=== PATIENT | male | born 1980 | race Caucasian/White ===

== ENCOUNTER → 2019-07-03 | Outpatient (CLI) | payer MEDICAID, SELFPAY | PROVIDERS: Family Provider Family Medicine; Visit Provider Nurse Practitioner | DX: F20.89 Other schizophrenia (principal); F12.20 Cannabis dependence, uncomplicated; F15.21 Other stimulant dependence, in remission; F17.210 Nicotine dependence, cigarettes, uncomplicated ==

== ENCOUNTER → 2019-07-17 13:23 | Outpatient (BNVA) | payer MEDICAID, SELFPAY | PROVIDERS: Family Provider Family Medicine; PCP Specialist; Visit Provider Specialist | DX: G40.309 Generalized idiopathic epilepsy and epileptic syndromes, not intractable, without status epilepticus (principal); F17.210 Nicotine dependence, cigarettes, uncomplicated | CPT/HCPCS: 99214 ==

== ENCOUNTER → 2019-08-30 14:28 | Outpatient (BNVA) | payer MEDICAID, SELFPAY | PROVIDERS: Family Provider Family Medicine; PCP Specialist; Visit Provider Nurse Practitioner | DX: F20.89 Other schizophrenia (principal); F12.20 Cannabis dependence, uncomplicated; F17.210 Nicotine dependence, cigarettes, uncomplicated | CPT/HCPCS: 99213 ==

== ENCOUNTER → 2019-10-25 08:39 | Outpatient (BNVA) | payer MEDICAID, SELFPAY | PROVIDERS: Family Provider Family Medicine; PCP Specialist; Visit Provider Nurse Practitioner | DX: F20.89 Other schizophrenia (principal); F12.20 Cannabis dependence, uncomplicated | CPT/HCPCS: 99213 ==

== ENCOUNTER → 2019-12-29 08:25 | Outpatient (BNVA) | payer MEDICAID, SELFPAY | PROVIDERS: Family Provider Family Medicine; PCP Specialist; Visit Provider Nurse Practitioner | DX: F20.89 Other schizophrenia (principal); F17.210 Nicotine dependence, cigarettes, uncomplicated; F12.20 Cannabis dependence, uncomplicated | CPT/HCPCS: 99213 ==

== ENCOUNTER → 2020-04-09 08:03 | Outpatient (BNVA) | payer MEDICAID, SELFPAY | PROVIDERS: Family Provider Family Medicine; PCP Specialist; Visit Provider Nurse Practitioner | DX: F20.89 Other schizophrenia (principal); F12.20 Cannabis dependence, uncomplicated; F17.210 Nicotine dependence, cigarettes, uncomplicated; T42.6X5A Adverse effect of other antiepileptic and sedative-hypnotic drugs, initial encounter; Z79.899 Other long term (current) drug therapy | CPT/HCPCS: 99213 ==

== ENCOUNTER → 2020-05-21 08:00 | Outpatient (BNVA) | payer MEDICAID, SELFPAY | PROVIDERS: Family Provider Family Medicine; PCP Specialist; Visit Provider Nurse Practitioner | DX: F20.89 Other schizophrenia (principal); Z79.899 Other long term (current) drug therapy; T42.6X5A Adverse effect of other antiepileptic and sedative-hypnotic drugs, initial encounter; F12.20 Cannabis dependence, uncomplicated | CPT/HCPCS: 80061; 80164; 83036; 83721; 85025; 99213 ==

== ENCOUNTER → 2020-08-12 09:21 | Outpatient (BNVA) | payer MEDICAID, SELFPAY | PROVIDERS: Family Provider Family Medicine; PCP Specialist; Visit Provider Nurse Practitioner | DX: F20.89 Other schizophrenia (principal); F12.20 Cannabis dependence, uncomplicated; F17.210 Nicotine dependence, cigarettes, uncomplicated; F10.20 Alcohol dependence, uncomplicated | CPT/HCPCS: 99214 ==

== ENCOUNTER → 2020-12-05 07:25 | Outpatient (BNVA) | payer MEDICARE, MEDICAID, SELFPAY | PROVIDERS: Family Provider Family Medicine; PCP Specialist; Visit Provider Nurse Practitioner | DX: F20.89 Other schizophrenia (principal); F12.20 Cannabis dependence, uncomplicated; F17.210 Nicotine dependence, cigarettes, uncomplicated; F10.20 Alcohol dependence, uncomplicated | CPT/HCPCS: 99214 ==

== ENCOUNTER → 2021-04-29 13:24 | Outpatient (BNVA) | payer MEDICARE, MEDICAID, SELFPAY | PROVIDERS: Family Provider Family Medicine; PCP Specialist; Visit Provider Nurse Practitioner | DX: F20.89 Other schizophrenia (principal); F10.20 Alcohol dependence, uncomplicated; F17.210 Nicotine dependence, cigarettes, uncomplicated; F15.21 Other stimulant dependence, in remission; F12.20 Cannabis dependence, uncomplicated | CPT/HCPCS: 99215 ==

== ENCOUNTER → 2021-07-03 11:44 | Outpatient (BNVA) | payer MEDICARE, MEDICAID, SELFPAY | PROVIDERS: Family Provider Family Medicine; PCP Specialist; Visit Provider Nurse Practitioner | DX: F20.89 Other schizophrenia (principal); F33.0 Major depressive disorder, recurrent, mild; F10.20 Alcohol dependence, uncomplicated; F15.21 Other stimulant dependence, in remission; F17.210 Nicotine dependence, cigarettes, uncomplicated; F12.20 Cannabis dependence, uncomplicated | CPT/HCPCS: 99214 ==

== ENCOUNTER 2021-07-22 16:27 | Inpatient (IN) | payer MEDICARE, MEDICAID, SELFPAY ==
[2021-07-22 17:02] VITALS: BP 153/114; PULSE 122; RESP 16; TEMP 36.8; O2SAT 95; BMI 37.5
--- NOTE | 2021-07-22 17:25 | PC.PHAR ---
pt states he takes care of his own medications-pt states he takes 4 tablets in the am and one tab hs-pt states he takes 2 of the same kind of tabs (invega 6mg takes 2 tabs qam filled on 07/04/21 30d/s) fluoxetine 40mg qam filled on 07/03/21 30d/s and depakote dr 500mg qam filled on 07/03/21 30d/s-and trazodone 100mg hs filled on 07/03/21 30d/s
[2021-07-22 17:30] LABS: Add Urine Microscopic? YES; Bilirubin Urine Neg (Negative); Blood Urine Neg (Negative); Glucose Urine UA Norm (Normal); Ketones Urine 1+ (Negative); Leukocyte Esterase Urine 2+ (Negative); Nitrate Urine Negative (Negative); Protein Urine Neg (Negative); Specific Gravity, Urine 1.025 (1.005-1.030); Urine Appearance SL Hazy (CLEAR); Urine Color Yellow (Yellow); Urobilinogen Urine Norm (Negative); pH Urine 5 (5-7)
[2021-07-22 17:39] LABS: Amphetamines Screen Urine Positive (Negative); Barbiturates Screen Urine Negative (Negative); Benzodiazepines Screen Urine Negative (Negative); Cocaine Screen Urine Negative (Negative); Opiate Screen Urine Negative (Negative); PCP Screen Urine Negative (Negative); THC Screen Urine Positive (Negative)
[2021-07-22 18:03] LABS: Add Urine Culture? Yes; Bacteria Urine TRACE /hpf; WBC Urine 25-40 /hpf (0-5)
[2021-07-22 18:46] LABS: Basophils % 0.8 %; Eosinophils # 0.1 10^3/uL (0.0-0.8); Eosinophils % 1.9 %; Hematocrit 40.3 % (42.0-52.0); Hemoglobin 14.3 g/dL (11.7-16.6); Lymphocytes # 1.7 10^3/uL (0.8-4.8); Lymphocytes % 35.5 %; Mean Corpuscular HGB Conc 35.5 g/dL (30.0-36.0); Mean Corpuscular Hemoglobin 36.2 pg (28.0-34.0); Mean Platelet Volume 8.3 fL (7.4-10.4); Monocytes # 0.5 10^3/uL (0.2-0.9); Monocytes % 10.3 %; Neutrophils # 2.42 10^3/uL (1.8-7.7); Neutrophils % 50.9 %; Nucleated Red Blood Cells % 0 %; Platelet Count 154 10^3/cmm (130-400); Red Blood Count 3.95 10^6/uL (4.1-5.3); Red Cell Distribution Width 13.1 % (12.1-15.1); White Blood Count 4.8 10^3/uL (4.0-10.0)
--- NOTE | 2021-07-22 19:17 | ED.C_ITS ---
HPI - Psych General: Chief Complaint: Psychiatric Symptoms Stated Complaint: 96 hr hold request Time Seen by Provider: 07/22/21 16:49 History of Present Illness: HPI Narrative: 41-year-old male with a history of schizophrenia and substance abuse. He presents on a court ordered 96-hour hold. He was picked up by law enforcement for this. Currently, he denies suicidal or homicidal ideation. Affidavit states that he, as of yesterday, was both homicidal and suicidal. MD complaint: suicidal ideation and other Onset (ago): day(s) Duration: changing over time History of same: Yes Relieving factors: none Exacerbating factors: none Context: recent alcohol abuse (6 AM) Associated psychiatric symptoms: depression If self harm: other Review of Systems Const: Denies: fever(s) or chills Eyes: Denies: change in vision Card: Denies: chest pain or palpitations Resp: Denies: dyspnea or productive cough GI: Denies: abdominal pain, nausea or vomiting Neuro: Denies: lack of coordination or difficulty walking [facility] ED PFSH: Medical History (Updated 07/22/21 @ 19:25 by Dionicio Johns DO) Alcohol dependence, uncomplicated Cannabis dependence, uncomplicated Major depressive disorder, recurrent, mild Nicotine dependence, cigarettes, uncomplicated On high dose antipsychotic drug therapy Other schizophrenia Other stimulant dependence, in remission Psychiatric care Valproic acid causing adverse effect in therapeutic use Family History (Updated 07/17/19 @ 14:21 by Galina Salinas LPN) Other Hypertension Stroke Social History (Updated 07/03/21 @ 11:56 by Pasquale Medina LPN) Smoking and tobacco status: current every day smoker cigarettes Packs smoked per day: 0.25 Years cigarettes smoked: 25 Quit status (tobacco): has tried quititng Number of times tried to quit tobacco: 1 Second hand smoke exposure: Yes Smoking risk assessment/counseling performed?: Yes Tobacco counseling given: counseling >3 minutes Alcohol intake: current Alcohol intake frequency: few times a month Physical Exam Const: COMMON NORMALS: patient oriented x3 and alert GENERAL APPEARANCE: cooperative HENMT: COMMON NORMALS: normocephalic and atraumatic HEAD & SCALP: normocephalic and atraumatic Chest: COMMONS NORMALS: normal inspection of the chest Resp: COMMON NORMALS: normal respiratory effort, No use of accessory muscles and clear to auscultation bilaterally AUSCULTATION: clear to auscultation bilaterally Cardio: COMMON NORMALS: regular rate and regular rhythm RATE: regular rate RHYTHM: regular rhythm GI: COMMON NORMALS: Normal to inspection, nondistended, normoactive bowel sounds present Neuro: COMMON NORMALS: patient oriented x3 SENSORIUM/ORIENTATION: Yes alert Course Consultations: Consultation #1: Vicky Time: 19:20 Vital Signs: Vital signs: Vital Signs Temperature 98.2 F 07/22/21 17:02 Pulse Rate 122 H 07/22/21 17:02 Respiratory Rate 16 07/22/21 17:02 Blood Pressure 153/114 07/22/21 17:02 Pulse Oximetry 95 07/22/21 17:02 MDM - Psych MDM Narrative: Medical decision making narrative: Spoke with psychiatry about this court ordered 96-hour hold patient. He appears medically stable. We are waiting a couple labs. If they are within reasonable limits he will be allowed admission to the [facility] Laboratory is stable. Urinalysis does show 2+ leukocyte Estrace, but is mildly contaminated. The patient is asymptomatic, afebrile, and has a normal white count. We would await cultures prior to treating this. Lab Data: Labs: Lab Results 07/22/21 07/22/21 07/22/21 17:08 17:08 18:35 WBC 4.8 10^3/uL 10^3/ uL (4.0-10.0) RBC 3.95 10^6/uL L 10 ^6/uL (4.1-5.3) Hgb 14.3 g/dL g/dL (11.7-16.6) Hct 40.3 % L % (42.0-52.0) MCV 102.0 fl H fl (80-94) MCH 36.2 pg H pg (28.0-34.0) MCHC 35.5 g/dL g/dL (30.0-36.0) RDW 13.1 % % (12.1-15.1) Plt Count 154 10^3/cmm 10^3 /cmm (130-400) MPV 8.3 fL fL (7.4-10.4) Neut % (Auto) 50.9 % % Lymph % (Auto) 35.5 % % [place] % (Auto) 10.3 % % Eos % (Auto) 1.9 % % Baso % (Auto) 0.8 % % Neut # (Auto) 2.42 10^3/uL 10^3 /uL (1.8-7.7) Lymph # (Auto) 1.7 10^3/uL 10^3/ uL (0.8-4.8) [place] # (Auto) 0.5 10^3/uL 10^3/ uL (0.2-0.9) Eos # (Auto) 0.1 10^3/uL 10^3/ uL (0.0-0.8) Baso # (Auto) 0.0 10^3/uL 10^3/ uL (0.0-0.1) Nucleated RBC % (a uto) 0 % % Nucleated RBCs # 0.0 /100WBC /100W BC Sodium Potassium Chloride Carbon Dioxide Anion Gap BUN Creatinine GFR Calculation Glucose Calculated Osmolal ity Calcium Total Bilirubin AST ALT Alkaline Phosphata se Total Protein Albumin Globulin Urine Color Yellow (Yellow) Urine Appearance Sl hazy (CLEAR) Urine pH 5 (5-7) Ur Specific Gravit y 1.025 (1.005-1.030) Urine Protein Neg (Negative) Urine Glucose (UA) Norm (Normal) Urine Ketones 1+ H (Negative) Urine Blood Neg (Negative) Urine Nitrate Negative (Negative) Urine Bilirubin Neg (Negative) Urine Urobilinogen Norm mg/dL mg/dL (Negative) Ur Leukocyte Carolyn ase 2+ H (Negative) Urine RBC 5-10 /hpf H /hpf (0-2) Urine WBC 25-40 /hpf H /hpf (0-5) Ur Squamous Epith Cells 5-10 /hpf H /hpf (0-5) Amorphous Sediment Not Reportable Urine Bacteria Trace /hpf /hpf (NONE) Salicylates Urine Opiates Scre en Negative ng/mL ng /mL (Negative) Acetaminophen Ur Barbiturates Sc reen Negative ng/mL ng /mL (Negative) Ur Phencyclidine S crn Negative ng/mL ng /mL (Negative) Ur Amphetamines Sc reen Positive ng/mL H ng/mL (Negative) U Benzodiazepines Scrn Negative ng/mL ng /mL (Negative) Urine Cocaine Scre en Negative ng/mL ng /mL (Negative) U Marijuana (THC) Screen Positive ng/mL H ng/mL (Negative) Ethyl Alcohol 07/22/21 18:35 WBC RBC Hgb Hct MCV MCH MCHC RDW Plt Count MPV Neut % (Auto) Lymph % (Auto) [place] % (Auto) Eos % (Auto) Baso % (Auto) Neut # (Auto) Lymph # (Auto) [place] # (Auto) Eos # (Auto) Baso # (Auto) Nucleated RBC % (a uto) Nucleated RBCs # Sodium 136 mmol/L mmol/L (136-145) Potassium 3.9 mmol/L mmol/L (3.5-5.1) Chloride 101 mmol/L mmol/L (98-107) Carbon Dioxide 18 mmol/L L mmol/ L (22-29) Anion Gap 20.9 H (5-19) BUN 13 mg/dL mg/dL (6-20) Creatinine 0.8 mg/dL mg/dL (0.7-1.2) GFR Calculation 106.5 mL/min mL/m in (90-130) Glucose 98 mg/dL mg/dL (65-115) Calculated Osmolal ity 282 mOsm/kg L mOs m/kg (285-295) Calcium 8.4 mg/dL L mg/dL (8.5-10.5) Total Bilirubin 0.3 mg/dL mg/dL (0.15-1.2) AST 80 U/L H U/L (0-40) ALT 53 U/L H U/L (0-41) Alkaline Phosphata se 93 IU/L IU/L (40-130) Total Protein 6.7 g/dL g/dL (6.6-8.7) Albumin 4.0 g/dL g/dL (3.5-5.2) Globulin 2.7 g/dL g/dL (1.3-4.6) Urine Color Urine Appearance Urine pH Ur Specific Gravit y Urine Protein Urine Glucose (UA) Urine Ketones Urine Blood Urine Nitrate Urine Bilirubin Urine Urobilinogen Ur Leukocyte Carolyn ase Urine RBC Urine WBC Ur Squamous Epith Cells Amorphous Sediment Urine Bacteria Salicylates < 0.3 mg/dL L mg/ dL (3-10) Urine Opiates Scre en Acetaminophen < 5.0 ug/mL L ug/ mL (10-30) Ur Barbiturates Sc reen Ur Phencyclidine S crn Ur Amphetamines Sc reen U Benzodiazepines Scrn Urine Cocaine Scre en U Marijuana (THC) Screen Ethyl Alcohol 132 mg/dL H mg/dL (0-10) Discharge Plan Discharge Patient Disposition: Admitted As Inpatient Admit Provider: Wilber Perry Clinical Impression: Suicidal ideation Condition: Stable Coding Level of Care Code ED Fulfillment Coordinator for [facility]g Fwd Exam Detailed
[2021-07-22 19:56] LABS: Alanine Aminotransferase 53 U/L (0-41); Alcohol Level 132 mg/dL (0-10); Alkaline Phosphatase 93 IU/L (40-130); Anion Gap 20.9 (5-19); Aspartate Amino Transferase 80 U/L (0-40); Blood Urea Nitrogen 13 mg/dL (6-20); Calcium 8.4 mg/dL (8.5-10.5); Carbon Dioxide 18 mmol/L (22-29); Chloride 101 mmol/L (98-107); Globulin 2.7 g/dL (1.3-4.6); Glomerular Filtration Rate 106.5 mL/min (90-130); Glucose 98 mg/dL (65-115); Osmolality Calculated 282 mOsm/kg (285-295); Potassium 3.9 mmol/L (3.5-5.1); Sodium 136 mmol/L (136-145); Total Bilirubin 0.3 mg/dL (0.15-1.2); Total Protein 6.7 g/dL (6.6-8.7)
[2021-07-22 20:00] LABS: Acetaminophen < 5.0 ug/mL (10-30); Salicylate < 0.3 mg/dL (3-10)
[2021-07-22 21:04] LABS: Valproic Acid Level 27.3 ug/mL (50-100)
[2021-07-22 21:07] VITALS: BP 169/111; PULSE 102; RESP 18; O2SAT 97
--- NOTE | 2021-07-22 21:15 | PC.NURSE ---
assessed patients vital and was hypertensive. Dr Johns notified. New orders placed.
[2021-07-22] MEDS: LORazepam 2 mg/mL INJ 1 mL IM (21:38)
[2021-07-22] MEDS: amlodipine 10 mg Tablet PO (21:38)
[2021-07-22 22:03] VITALS: BP 169/111; PULSE 102; RESP 18; TEMP 37.1; O2SAT 97
[2021-07-22 22:23] VITALS: BP 168/107; PULSE 105; RESP 22; TEMP 37.1; O2SAT 96
[2021-07-22] MEDS: trazodone 100 mg Tablet PO (23:42)
[2021-07-23 06:00] VITALS: BP 150/87; PULSE 86; RESP 18; TEMP 36.8; O2SAT 98
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
[2021-07-23] MEDS: paliperidone ER 6 mg Tablet 12 MG PO (09:40)
[2021-07-23] MEDS: thiamine 100 mg Tablet PO (09:40)
[2021-07-23] MEDS: folic acid 1 mg Tablet PO (09:41)
[2021-07-23] MEDS: amlodipine 10 mg Tablet PO (09:41)
[2021-07-23] MEDS: fluoxetine 20 mg Capsule 40 MG PO (09:41)
[2021-07-23] MEDS: multivitamin therapeutic Tablet 1 TAB PO (09:41)
[2021-07-23] MEDS: divalproex DR 500 mg Tablet PO (09:42)
[2021-07-23 14:00] VITALS: BP 175/96; PULSE 113; RESP 20; TEMP 36.6; O2SAT 95
[2021-07-23] MEDS: trazodone 100 mg Tablet PO (21:35)
[2021-07-23] MEDS: loperamide 2 mg Capsule PO (21:35)
[2021-07-23] MEDS: hyDROXYzine 25 mg Capsule 50 MG PO (21:35)
[2021-07-23 21:47] VITALS: BP 128/84; PULSE 87; RESP 18; TEMP 36.5; O2SAT 98
[2021-07-24] MEDS: LORazepam 2 mg Tablet PO (00:41)
--- NOTE | 2021-07-24 01:13 | PC.NURSE ---
PRN Administration Patient c/o anxiety and having diarrhea. Given PRN hydroxyzine and immodium with HS medications with noted effectiveness. Patient later received Lorazepam 2 mg PO for CIWA score of 11 with noted effectiveness.
[2021-07-24] MEDS: divalproex DR 500 mg Tablet PO (05:52)
[2021-07-24] MEDS: paliperidone ER 6 mg Tablet 12 MG PO (05:52)
[2021-07-24] MEDS: fluoxetine 20 mg Capsule 40 MG PO (05:53)
[2021-07-24 06:00] VITALS: BP 142/94; PULSE 100; RESP 20; TEMP 37.1; O2SAT 98
[2021-07-24] MEDS: multivitamin therapeutic Tablet 1 TAB PO (08:23)
[2021-07-24] MEDS: amlodipine 10 mg Tablet PO (08:24)
[2021-07-24] MEDS: folic acid 1 mg Tablet PO (08:24)
[2021-07-24] MEDS: thiamine 100 mg Tablet PO (08:24)
[2021-07-24 14:00] VITALS: BP 136/82; PULSE 95; RESP 18; TEMP 36.6; O2SAT 97
--- NOTE | 2021-07-24 15:32 | W.PM.NPUPNS ---
Subjective NPU Subjective: Interval history: He said that he did not sleep much at all last night. He said that the Ativan 2 mg a day gave him just after midnight for his alcohol withdrawal helped him a little bit but did not really put him to sleep. He has been trying to get some sleep during the day but cannot. He continues to deny having actual thoughts about killing himself or anyone else. He agreed to try trazodone 200 mg to help his sleep. Mental Status Exam MSE Comments: This is a 41-year-old obese single male who appears his stated age and is in no acute distress. He is adequately groomed and in hospital scrubs. He was pleasant and cooperative with the evaluation. psychomotor activity is normal. Speech is at a regular rate and rhythm, normal volume, good articulation, not pressured. Alert, oriented X3 Attention and concentration appears to be normal. Memory is intact Mood is depressed but better. Affect is mildly dysphoric. Thought process is logical and goal-directed. Thought content: Denies auditory and visual hallucinations. No delusions or paranoia are noted. He denies any suicidal or homicidal ideation. Fund of knowledge is average. Insight and judgment appear to be impaired. Impulse control is impaired.. Cognition: Patient Appearance: Appropriate Level of Consciousness: Awake, Alert, Appropriate and Follows Commands Patient Cognition Impaired: No Ability to Follow Directions: Good Patient Orientation (long list): Person, Place, Name and Age Comprehension Ability: No Impairment Hallucination Type: None Delusion Description: Not Present Thought Process: Appropriate Affect: Affect Description: Appropriate and Anxious Behavior: Patient Behavior: Appropriate Speech Pattern: Appropriate and Clear Vitals/I&O/Wt Last Vital Signs Temp 98 F 07/24/21 14:00 Pulse 95 07/24/21 14:00 Resp 18 07/24/21 14:00 BP 136/82 07/24/21 14:00 Pulse Ox 97 07/24/21 14:00 Weight last 48 hrs Weight 129.274 kg Data NPU : 07/22/21 18:35 07/22/21 18:35 Micro: Microbiology 07/22/21 17:08 Urine Culture - Final Urine,Clean Catch Microbiology 07/22/21 17:08 Urine,Clean Catch Urine Culture - Final A&P Assessment and plan (1) Other schizophrenia: Status: Acute (2) Cannabis dependence, uncomplicated: Status: Acute (3) Nicotine dependence, cigarettes, uncomplicated: Status: Acute (4) Alcohol dependence, uncomplicated: Status: Acute (5) Major depressive disorder, recurrent, mild: Status: Acute (6) Suicidal ideation: Status: Acute Additional A&P Information This is a 41-year-old disabled male with a diagnosis of schizophrenia who recently made homicidal and suicidal threats documented by his therapist and an affidavit. Plan: 1. Continue current medication. Try trazodone 200 mg at bedtime to help with sleep. CIWA protocol. 2. Continue every 15 minute checks for safety. 3. Encourage individual, group and milieu therapies. 4. Encourage sober living treatment after discharge at the highest level of care to which he is willing to commit. 5. We will monitor for safety for himself in the community prior to discharge. Involuntary Hold Information 96 Hour Hold: 96 Hour Involuntary Admission: Yes 96 Hour Hold Ending Date: 07/28/21 96 Hour Hold Ending Time: 19:27 Attestations NPU Medical Necessity Statement*: Inpatient hospitalization is medically necessary and the clinically appropriate intervention at this time. We will initiate medications and make changes as indicated. Coding Level of Care Code Acute Stab Setter And Driller for Keg Fwd Diagnoses Other schizophrenia F20.89 Cannabis dependence, uncomplicated F12.20 Nicotine dependence, cigarettes, uncomplicated F17.210 Alcohol dependence, uncomplicated F10.20 Major depressive disorder, recurrent, mild F33.0 Suicidal ideation R45.851
[2021-07-24 20:30] VITALS: BP 144/92; PULSE 89; RESP 17; TEMP 37; O2SAT 99
[2021-07-24] MEDS: trazodone 100 mg Tablet PO (20:57)
--- NOTE | 2021-07-24 23:06 | PC.NURSE ---
Patient received Vistaril 50mg po for complaints of anxiety.
[2021-07-25] MEDS: OLANZapine 5 mg ODT PO ×2 (03:19→20:30)
[2021-07-25 05:59] VITALS: BP 144/92; PULSE 89; RESP 17; TEMP 37; O2SAT 99
[2021-07-25 06:34] VITALS: BP 147/93; PULSE 93; RESP 18; TEMP 37.1; O2SAT 98
[2021-07-25] MEDS: paliperidone ER 6 mg Tablet 12 MG PO (06:55)
[2021-07-25] MEDS: divalproex DR 500 mg Tablet PO (06:55)
[2021-07-25] MEDS: fluoxetine 20 mg Capsule 40 MG PO (06:55)
[2021-07-25] MEDS: amlodipine 10 mg Tablet PO (09:37)
[2021-07-25] MEDS: multivitamin therapeutic Tablet 1 TAB PO (09:37)
[2021-07-25] MEDS: folic acid 1 mg Tablet PO (09:37)
[2021-07-25] MEDS: thiamine 100 mg Tablet PO (09:38)
--- NOTE | 2021-07-25 12:45 | P.NPUPN_ITS ---
Subjective NPU Subjective: Interval history: He says that he did not sleep well again last night. Only given the trazodone 100 mg prescription and about the 200 mg that was ordered. I will discontinue the 100 mg as needed and increase to 200 mg to 300 mg. He has been sleeping most of the morning. He has not had an Ativan in the last 24 hours. He continues to suicidal or homicidal ideation. He says that they hallucinations are under good control. Mental Status Exam MSE Comments: This is a 41-year-old obese single male who appears his stated age and is in no acute distress. He is adequately groomed and in hospital scrubs. He was pleasant and cooperative with the evaluation. psychomotor activity is normal. Speech is at a regular rate and rhythm, normal volume, good articulation, not pressured. Alert, oriented X3 Attention and concentration appears to be normal. Memory is intact Mood is depressed but better. Affect is mildly dysphoric. Thought process is logical and goal-directed. Thought content: Denies auditory and visual hallucinations. No delusions or paranoia are noted. He denies any suicidal or homicidal ideation. Fund of knowledge is average. Insight and judgment appear to be impaired. Impulse control is impaired.. Cognition: Patient Appearance: Appropriate Level of Consciousness: Awake, Alert, Appropriate and Follows Commands Patient Cognition Impaired: No Ability to Follow Directions: Good Patient Orientation (long list): Person, Place, Name, Age and Month Comprehension Ability: No Impairment Hallucination Type: None Delusion Description: Not Present Thought Process: Appropriate Affect: Affect Description: Appropriate and Calm Behavior: Patient Behavior: Appropriate and Cooperative Speech Pattern: Appropriate and Clear Vitals/I&O/Wt Last Vital Signs Temp 98.8 F 07/25/21 06:34 Pulse 93 07/25/21 06:34 Resp 18 07/25/21 06:34 BP 147/93 07/25/21 06:34 Pulse Ox 98 07/25/21 06:34 Data NPU : 07/22/21 18:35 07/22/21 18:35 Micro: Microbiology 07/22/21 17:08 Urine Culture - Final Urine,Clean Catch Microbiology 07/22/21 17:08 Urine,Clean Catch Urine Culture - Final A&P Assessment and plan (1) Other schizophrenia: Status: Acute (2) Cannabis dependence, uncomplicated: Status: Acute (3) Nicotine dependence, cigarettes, uncomplicated: Status: Acute (4) Alcohol dependence, uncomplicated: Status: Acute (5) Major depressive disorder, recurrent, mild: Status: Acute (6) Suicidal ideation: Status: Acute Additional A&P Information This is a 41-year-old disabled male with a diagnosis of schizophrenia who recently made homicidal and suicidal threats documented by his therapist and an affidavit. Plan: 1. Continue current medication. Try trazodone 300 mg at bedtime to help with sleep. CIWA protocol. 2. Continue every 15 minute checks for safety. 3. Encourage individual, group and milieu therapies. 4. Encourage sober living treatment after discharge at the highest level of care to which he is willing to commit. 5. We will monitor for safety for himself in the community prior to discharge. Involuntary Hold Information 96 Hour Hold: 96 Hour Involuntary Admission: Yes 96 Hour Hold Ending Date: 07/28/21 96 Hour Hold Ending Time: 19:27 Attestations U Medical Necessity Statement*: Inpatient hospitalization is medically necessary and the clinically appropriate intervention at this time. We will initiate medications and make changes as indicated. Coding Level of Care Code Acute Professor Of Environmental Studies for Keg Fwd Diagnoses Other schizophrenia F20.89 Cannabis dependence, uncomplicated F12.20 Nicotine dependence, cigarettes, uncomplicated F17.210 Alcohol dependence, uncomplicated F10.20 Major depressive disorder, recurrent, mild F33.0 Suicidal ideation R45.851
[2021-07-25 14:00] VITALS: BP 124/78; PULSE 104; RESP 17; TEMP 37; O2SAT 98
[2021-07-25 20:25] VITALS: PULSE 124; RESP 18; O2SAT 98
[2021-07-25] MEDS: trazodone 100 mg Tablet 300 MG PO (20:30)
--- NOTE | 2021-07-26 02:37 | PC.NURSE ---
PRN Administration Patient c/o of moderate anxiety and restlessness and trouble getting to sleep. PRN olanzapine and trazodone PO given as ordered with noted effectiveness.
[2021-07-26 06:00] VITALS: BP 114/81; PULSE 110; RESP 20; TEMP 36.6; O2SAT 98
[2021-07-26] MEDS: paliperidone ER 6 mg Tablet 12 MG PO (06:12)
[2021-07-26] MEDS: fluoxetine 20 mg Capsule 40 MG PO (06:12)
--- NOTE | 2021-07-26 08:56 | W.PM.NPUPNS ---
Subjective NPU Subjective: Interval history: He did not sleep well again last night despite taking trazodone 300 mg. He said it knocked him out for about 1 hour because he was awake. He had said previously that the Ativan helped him sleep. He agreed to try some Restoril. He understands that it is more habit-forming that trazodone or Seroquel but probably preferable to not sleeping. He says that is when he sleeps that he gets anxious and depressed. He starts thinking about all of the things that he has lost and does not want in his life. He asked about depression and did not know that he was on Prozac which is an antidepressant. It is hopeful that if we can get him sleeping better he will not have these periods of depression and anxiety when he is trying to sleep. He has not required Ativan recently for alcohol withdrawal. He is pleasantly surprised that he has had little difficulty withdrawing from alcohol and is hopeful that he would not go back to it now. He thinks that the Restoril might help him stay sober as well. Mental Status Exam MSE Comments: This is a 41-year-old obese single male who appears his stated age and is in no acute distress. He is adequately groomed and in hospital scrubs. He was pleasant and cooperative with the evaluation. psychomotor activity is normal. Speech is at a regular rate and rhythm, normal volume, good articulation, not pressured. Alert, oriented X3 Attention and concentration appears to be normal. Memory is intact Mood is depressed but better. Affect is mildly dysphoric. Thought process is logical and goal-directed. Thought content: Denies auditory and visual hallucinations. No delusions or paranoia are noted. He denies any suicidal or homicidal ideation. Fund of knowledge is average. Insight and judgment appear to be impaired. Impulse control is impaired.. Cognition: Patient Appearance: Appropriate Level of Consciousness: Awake, Alert, Appropriate and Follows Commands Patient Cognition Impaired: No Ability to Follow Directions: Good Patient Orientation (long list): Person, Place, Name, Age and Month Comprehension Ability: No Impairment Hallucination Type: None Delusion Description: Not Present Thought Process: Appropriate Affect: Affect Description: Appropriate Behavior: Patient Behavior: Appropriate Speech Pattern: Appropriate Vitals/I&O/Wt Last Vital Signs Temp 98 F 07/26/21 06:00 Pulse 110 H 07/26/21 06:00 Resp 20 H 07/26/21 06:00 BP 114/81 07/26/21 06:00 Pulse Ox 98 07/26/21 06:00 Data NPU : 07/22/21 18:35 07/22/21 18:35 A&P Assessment and plan (1) Other schizophrenia: Status: Acute (2) Cannabis dependence, uncomplicated: Status: Acute (3) Nicotine dependence, cigarettes, uncomplicated: Status: Acute (4) Alcohol dependence, uncomplicated: Status: Acute (5) Major depressive disorder, recurrent, mild: Status: Acute (6) Suicidal ideation: Status: Acute Additional A&P Information This is a 41-year-old disabled male with a diagnosis of schizophrenia who recently made homicidal and suicidal threats documented by his therapist and an affidavit. Plan: 1. Continue current medication. Try Restoril 30 mg at bedtime to help with sleep. CIWA protocol. 2. Continue every 15 minute checks for safety. 3. Encourage individual, group and milieu therapies. 4. Encourage sober living treatment after discharge at the highest level of care to which he is willing to commit. 5. We will monitor for safety for himself in the community prior to discharge. Involuntary Hold Information 96 Hour Hold: 96 Hour Involuntary Admission: Yes 96 Hour Hold Ending Date: 07/28/21 96 Hour Hold Ending Time: 19:27 Attestations NPU Medical Necessity Statement*: Inpatient hospitalization is medically necessary and the clinically appropriate intervention at this time. We will initiate medications and make changes as indicated. Coding Level of Care Code Acute Nutrition Worker for Jaquelin Mercado Diagnoses Other schizophrenia F20.89 Cannabis dependence, uncomplicated F12.20 Nicotine dependence, cigarettes, uncomplicated F17.210 Alcohol dependence, uncomplicated F10.20 Major depressive disorder, recurrent, mild F33.0 Suicidal ideation R45.851
[2021-07-26] MEDS: folic acid 1 mg Tablet PO (09:16)
[2021-07-26] MEDS: multivitamin therapeutic Tablet 1 TAB PO (09:16)
[2021-07-26] MEDS: thiamine 100 mg Tablet PO (09:16)
[2021-07-26] MEDS: amlodipine 10 mg Tablet PO (09:16)
[2021-07-26] MEDS: nicotine 21 mg Patch 1 PATCH TRANSDERMA (09:31)
[2021-07-26 14:00] VITALS: BP 123/80; PULSE 109; RESP 17; O2SAT 97
[2021-07-26] MEDS: divalproex DR 500 mg Tablet PO (19:28)
--- NOTE | 2021-07-26 19:29 | PC.NURSE ---
Patients 0600 depakote was given at appropriate time but did not scan.
[2021-07-26 20:12] VITALS: BP 125/81; PULSE 101; RESP 17; O2SAT 97
[2021-07-26] MEDS: temazepam 15 mg Capsule 30 MG PO (20:51)
[2021-07-27] MEDS: OLANZapine 5 mg ODT PO ×2 (01:07→21:31)
[2021-07-27] MEDS: hyDROXYzine 25 mg Capsule 50 MG PO ×2 (02:38→23:37)
--- NOTE | 2021-07-27 04:33 | PC.NURSE ---
Patient was given his restoril 30mg po per physician orders for insomnia. This was effective for 3 hours. Zyprexa 5 mg po was given. This was ineffective and patient remains awake.
[2021-07-27 05:54] VITALS: BMI 37.5
[2021-07-27 06:00] VITALS: BP 113/88; PULSE 99; RESP 18; TEMP 36.8; O2SAT 97
[2021-07-27] MEDS: fluoxetine 20 mg Capsule 40 MG PO (07:24)
[2021-07-27] MEDS: divalproex DR 500 mg Tablet PO (07:24)
[2021-07-27] MEDS: paliperidone ER 6 mg Tablet 12 MG PO (07:24)
[2021-07-27] MEDS: multivitamin therapeutic Tablet 1 TAB PO (08:48)
[2021-07-27] MEDS: folic acid 1 mg Tablet PO (08:48)
[2021-07-27] MEDS: thiamine 100 mg Tablet PO (08:48)
[2021-07-27] MEDS: amlodipine 10 mg Tablet PO (08:48)
[2021-07-27 14:00] VITALS: BP 122/80; PULSE 113; RESP 20; TEMP 36.8; O2SAT 95
--- NOTE | 2021-07-27 14:07 | P.NPUPN_ITS ---
Subjective NPU Subjective: Interval history: He said that he slept significantly better with the Restoril last night. He says that he thinks they gave him 300 mg of trazodone last night also. That was not available and it is not recorded. He might have misunderstood what he received. He did get a Zyprexa a few hours later but that did nothing and gave him some Vistaril which helped. He would like to try Vistaril along with the Restoril tonight to see if that would help longer. He continues to deny having any suicidal ideations. He says that he was just running his mouth and had no intention of harming himself. He continued to. Hearing voices. Mental Status Exam MSE Comments: This is a 41-year-old obese single male who appears his stated age and is in no acute distress. He is adequately groomed and in hospital scrubs. He was pleasant and cooperative with the evaluation. psychomotor activity is normal. Speech is at a regular rate and rhythm, normal volume, good articulation, not pressured. Alert, oriented X3 Attention and concentration appears to be normal. Memory is intact Mood is good. Affect is euthymic. Thought process is logical and goal-directed. Thought content: Denies auditory and visual hallucinations. No delusions or paranoia are noted. He denies any suicidal or homicidal ideation. Fund of knowledge is average. Insight and judgment appear to be impaired. Impulse control is impaired.. Cognition: Patient Appearance: Appropriate Level of Consciousness: Awake, Alert, Appropriate and Follows Commands Patient Cognition Impaired: No Ability to Follow Directions: Good Patient Orientation (long list): Person, Place, Name, Age, Birthday and Month Comprehension Ability: No Impairment Hallucination Type: None Delusion Description: Not Present Thought Process: Appropriate Affect: Affect Description: Appropriate Behavior: Patient Behavior: Appropriate Speech Pattern: Appropriate Vitals/I&O/Wt Last Vital Signs Temp 98.2 F 07/27/21 06:00 Pulse 99 07/27/21 06:00 Resp 18 07/27/21 06:00 BP 113/88 07/27/21 06:00 Pulse Ox 97 07/27/21 06:00 Weight last 48 hrs Weight 129.274 kg Data NPU : 07/22/21 18:35 07/22/21 18:35 A&P Assessment and plan (1) Other schizophrenia: Status: Acute (2) Cannabis dependence, uncomplicated: Status: Acute (3) Nicotine dependence, cigarettes, uncomplicated: Status: Acute (4) Alcohol dependence, uncomplicated: Status: Acute (5) Major depressive disorder, recurrent, mild: Status: Acute (6) Suicidal ideation: Status: Acute Additional A&P Information This is a 41-year-old disabled male with a diagnosis of schizophrenia who recently made homicidal and suicidal threats documented by his therapist and an affidavit. Plan: 1. Continue current medication. Restoril 30 mg and Vistaril 50 mg at bedtime to help with sleep.. 2. Continue every 15 minute checks for safety. 3. Encourage individual, group and milieu therapies. 4. Encourage sober living treatment after discharge at the highest level of care to which he is willing to commit. 5. We will monitor for safety for himself in the community prior to discharge. Involuntary Hold Information 96 Hour Hold: 96 Hour Involuntary Admission: Yes 96 Hour Hold Ending Date: 07/28/21 96 Hour Hold Ending Time: 19:27 Attestations U Medical Necessity Statement*: Inpatient hospitalization is medically necessary and the clinically appropriate intervention at this time. We will initiate medications and make changes as indicated. Coding Level of Care Code Acute Artist'S Representative for Jaquelin Mercado Diagnoses Other schizophrenia F20.89 Cannabis dependence, uncomplicated F12.20 Nicotine dependence, cigarettes, uncomplicated F17.210 Alcohol dependence, uncomplicated F10.20 Major depressive disorder, recurrent, mild F33.0 Suicidal ideation R45.851
[2021-07-27] MEDS: temazepam 15 mg Capsule 30 MG PO (20:00)
[2021-07-27 20:21] VITALS: BP 130/88; PULSE 105; RESP 17; TEMP 36.6; O2SAT 97
[2021-07-28] MEDS: nicotine 2 mg Gum BUCCAL ×2 (00:06→06:17)
--- NOTE | 2021-07-28 01:15 | PC.NURSE ---
Patient has insomnia. Patient received zyprexa 5 mg po at 2130 when the restoril was ineffective. This was ineffective. At 2336 patient received vistaril 50 mg po for anxiety (patient with hallucination and delusions earlier in the evening). This medication was effective as the patient is asleep at this time.
--- NOTE | 2021-07-28 01:26 | PC.NURSE ---
2030 Patient is having active hallucinations and delusions. He had his eyes closed and thought that all of his family was visiting. When he opened his eyes there was no one there. This was sad to him because he was seeing things that weren't there. He came to the nurses station and demanded to see his phone. Per the BERNADETTE Spears, they took his phone out earlier to get some numbers out of it and she put it back in the safe. He believes he left it out to charge and someone stole it. He came to the desk at 2009 wanting his phone to call someone to bring him his coat since it is cold outside and he will need it in the morning to leave. Each time the patient was redirectable and apologetic for his behavior.
--- NOTE | 2021-07-28 01:36 | PC.NURSE ---
0136 Patient is awake and at the nurses station. He believes that he told his brother to come and bring him a set of keys for his motorcycle so that he would be able to drive it home tomorrow upon discharge. When trying to redirect the patient he was still focused on getting his keys. He finally agreed that we would handle this in the morning. He went back to his room.
[2021-07-28] MEDS: haloperidol 5 mg Tablet PO (01:48)
--- NOTE | 2021-07-28 02:48 | PC.NURSE ---
Patient was given Haldol 5 mg po for active psychosis. At this time 0248 patient is resting quietly in bed with his eyes closed.
--- NOTE | 2021-07-28 03:24 | PC.NURSE ---
Patient is awake in his room talking to himself.
--- NOTE | 2021-07-28 04:49 | PC.NURSE ---
Patient continues to be awake and just finished showering.
[2021-07-28] MEDS: fluoxetine 20 mg Capsule 40 MG PO (05:49)
[2021-07-28] MEDS: divalproex DR 500 mg Tablet PO (05:49)
[2021-07-28] MEDS: paliperidone ER 6 mg Tablet 12 MG PO (05:49)
--- NOTE | 2021-07-28 05:52 | PC.NURSE ---
Patient is pacing the halls and trying to wake up another patient in her room.
[2021-07-28 06:00] VITALS: BP 146/86; PULSE 110; RESP 18; TEMP 36.6; O2SAT 98
--- NOTE | 2021-07-28 06:50 | W.PM.NPUDCS ---
Diagnoses at Discharge Discharge Diagnosis (1) Other schizophrenia: Status: Acute (2) Cannabis dependence, uncomplicated: Status: Acute (3) Nicotine dependence, cigarettes, uncomplicated: Status: Acute (4) Alcohol dependence, uncomplicated: Status: Acute (5) Major depressive disorder, recurrent, mild: Status: Acute (6) Suicidal ideation: Status: Acute Reason for Visit Reason for Visit: 96 hr hold request Brief History: History of Present Illness Dmitri Adames is a 41 year old male brought in through the emergency department with the following report: HPI Narrative: 41-year-old male with a history of schizophrenia and substance abuse. He presents on a court ordered 96-hour hold. He was picked up by law enforcement for this. Currently, he denies suicidal or homicidal ideation. Affidavit states that he, as of yesterday, was both homicidal and suicidal. MD complaint: suicidal ideation and other. He had seen his therapist earlier in the day with the following affidavit: Client spoke with this therapist on July 21, 2021 and reported that he is currently homicidal and suicidal. He stated that he is going to [facility] [place] and help him to be asked with my own dad can make him bleed and after that I am going to shoot him and myself . Client had agreed to go to the hospital but when long first arrived he refused to go. This therapist spoke with his [id number] today and client is still at her house and still plans to follow through with his plan. He is diagnosed with schizophrenia, depression and alcohol use disorder. Thomas was warned about client's plan. Client states that he is not taking medication as prescribed. Drinking 1 to 2 pints of vodka daily. He was admitted to the neuropsychiatry unit for definitive treatment of these issues. He says that he has been diagnosed with schizophrenia for a number of years. He said that he heard voices before taking medication. He said that he was uncomfortable around other people and thought people were watching him before taking medication. He says the medications worked well for him and he does not have hallucinations. He has been with his girlfriend for 2 years. She evidently had an affair and they have been going back and forth for the last 6 or 7 months. She is on again and off again. She had him move in with her but then she changed her mind. He has been staying with his brother and with some other friends from time to time. He is on disability from seizures and from schizophrenia. He says that he has been disabled for 2 years. He tries to keep himself busy by walking and helping other people. He drinks vodka on a regular basis. He said he started drinking to get drunk. Now he drinks to avoid the withdrawal. He said that he was sober for about 60 days approximately 3 months ago but then started drinking again because she broke off their relationship again. He drinks 2 pints of vodka per day. He has to drink a pint in the morning because he has tremors and withdrawal. He drinks another fight in the evenings. He has been smoking marijuana this since he was 16 years old. The only time that he does not smoke marijuana is when he get any. He has used methamphetamine a few times but says that he does not like it. He took a very small amount earlier this week but stopped before use a significant amount. Seroquel recently to help with his sleep problems but that did not do a thing. When taking 300 mg did not help. He told his psychiatrist the trazodone which helped him before but when she changed him to 100 mg at bedtime it did not help. She also changed him to Invega 12 mg daily. That is well has never psychotic but it does not help him sleep. He said that if he withdraws from alcohol. He does not want to go back to drinking. He is on a 96-hour hold and by his calculations he should be out by Wednesday. He was told by our current relations that he was up on Wednesday. He was not happy about that and said that he was going to stop cooperating and would start being belligerent. Hospital Course Hospital Course He slowly acclimated to the individual, group and milieu therapies provided. His outpatient medications were continued unchanged. Trazodone 100 mg was not working for sleep. we tried Seroquel 300 mg but they did not work. We eventually ended up on [id number] mg along with Vistaril 50 mg. He tolerated these doses and showed steady improvement during his stay. He was able to contract for safety outside hospital prior to discharge. During the hospitalization, patient had routine laboratory studies which were within normal limits except for few outliers. Additionally there was a general medical evaluation which was also within normal limits and revealed no new acute processes. Discharge Summary: At the time of discharge, lethality was denied and psychosis was resolving. Mood and anxiety were well managed. Patient endorsed a plan to follow-up with the aftercare recommendations of the treatment team. Patient was evaluated and deemed to be absent credible lethality, and had achieved the maximum benefit from an inpatient hospitalization, so was discharged. Involuntary Hold Information 96 Hour Hold: 96 Hour Involuntary Admission: Yes 96 Hour Hold Ending Date: 07/28/21 96 Hour Hold Ending Time: 19:27 Mental Status Exam MSE Comments: This is a 41-year-old obese single male who appears his stated age and is in no acute distress. He is adequately groomed and in hospital scrubs. He was pleasant and cooperative with the evaluation. psychomotor activity is normal. Speech is at a regular rate and rhythm, normal volume, good articulation, not pressured. Alert, oriented X3 Attention and concentration appears to be normal. Memory is intact Mood is good. Affect is euthymic. Thought process is logical and goal-directed. Thought content: Denies auditory and visual hallucinations. No delusions or paranoia are noted. He denies any suicidal or homicidal ideation. Fund of knowledge is average. Insight and judgment appear to be impaired. Impulse control is impaired.. Cognition: Patient Appearance: Appropriate Level of Consciousness: Awake, Alert, Appropriate and Follows Commands Patient Cognition Impaired: No Ability to Follow Directions: Good Patient Orientation (long list): Person, Place, Name, Age, Birthday and Month Comprehension Ability: No Impairment Hallucination Type: None Delusion Description: Not Present Thought Process: Confused, Disorganized and Flight of Ideas Affect: Affect Description: Appropriate and Anxious Behavior: Patient Behavior: Appropriate and Cooperative Speech Pattern: Clear Discharge Data Vitals: Last Vital Signs Temp 97.9 F 07/27/21 20:21 Pulse 105 H 07/27/21 20:21 Resp 17 07/27/21 20:21 BP 130/88 07/27/21 20:21 Pulse Ox 97 07/27/21 20:21 Discharge Plan Discharge Patient Disposition: Home Condition: Stable Prescriptions: New temazepam 15 mg Capsule 30 mg PO BEDTIME 30 Days Qty: 60 RF: 0 hydroxyzine pamoate 25 mg Capsule 50 mg PO Q6H PRN (Reason: Anxiety) 30 Days Qty: 60 RF: 0 Continued fluoxetine 40 mg capsule 40 mg PO QAM Qty: 30 RF: 1 paliperidone [Invega] 6 mg tablet extended release 24hr 12 mg PO QAM Qty: 60 RF: 1 Depakote 500 mg tablet,delayed release (DR/EC) 500 mg PO QAM RF: 0 trazodone 100 mg tablet 100 mg PO BEDTIME RF: 0 Discontinued Xanax See Rx Instructions .ROUTE .COMPLEX RF: 0 Discharge Orders: Discharge Order (Routine); Ordered 07/28/21 Ordered By: Wilber Perry Referrals: Rhianna Watts PMHNP [Staff Physician] - 08/14/21 11:45 am Discharge Diet: Regular Discharge Activity: Resume usual activity Patient Instructions: Opioid Safety Discharge Attestations NPU Time Spent in Discharge Care*: less than 30 min Specific Discharge Activities: Specific discharge activities: educating patient, discussing with case liner/social workers/dc planners, documenting/other paperwork and evaluating patient/reviewing data Coding Level of Care Code Acute [facility] DC note Diagnoses Other schizophrenia F20.89 Cannabis dependence, uncomplicated F12.20 Nicotine dependence, cigarettes, uncomplicated F17.210 Alcohol dependence, uncomplicated F10.20 Major depressive disorder, recurrent, mild F33.0 Suicidal ideation R45.851
[2021-07-28 07:57] VITALS: BP 146/86; PULSE 110; RESP 18; TEMP 36.6; O2SAT 98
--- NOTE | 2021-07-28 09:37 | DCPLANNER ---
IMM completed on 07/28/21 @ [id number]. Copy of rights given to pt and pt stated he understood his rights.
== END 2021-07-28 09:44 | disposition home or self-care (01) | DRG 885 ==
LOC: ER 19:25 → NP 20:45
PROVIDERS: Admitting Provider Psychiatry & Neurology Psychiatry; Emergency Provider Emergency Medicine; Visit Provider Psychiatry & Neurology Psychiatry
DX: F25.1 Schizoaffective disorder, depressive type (principal); R45.851 Suicidal ideations; F10.239 Alcohol dependence with withdrawal, unspecified; R45.850 Homicidal ideations; F12.20 Cannabis dependence, uncomplicated; F17.210 Nicotine dependence, cigarettes, uncomplicated; Z91.14 Patient's other noncompliance with medication regimen; R56.9 Unspecified convulsions; Z59.01 Sheltered homelessness
CPT/HCPCS: 80053; 80164; 80306; 80307; 81001; 85025; 87086; 96372; 97165; 99285; J2060

== ENCOUNTER → 2021-10-08 11:01 | Outpatient (BNVA) | payer MEDICARE, MEDICAID, SELFPAY | PROVIDERS: Visit Provider Nurse Practitioner | DX: F33.0 Major depressive disorder, recurrent, mild (principal); F20.89 Other schizophrenia; F17.210 Nicotine dependence, cigarettes, uncomplicated; F12.20 Cannabis dependence, uncomplicated; F10.20 Alcohol dependence, uncomplicated; F15.20 Other stimulant dependence, uncomplicated | CPT/HCPCS: 99215 ==

== ENCOUNTER 2022-01-23 03:14 | Emergency (ER) | payer MEDICARE, MEDICAID, SELFPAY ==
[2022-01-23 03:15] VITALS: BP 143/91; PULSE 114; RESP 20; TEMP 36.8; O2SAT 97; BMI 25.1
--- NOTE | 2022-01-23 03:29 | XRR_ITS ---
PROCEDURE INFORMATION: Exam: XR Left Shoulder Exam date and time: 01/23/2022 3:54 AM Age: 41 years old Clinical indication: Injury or trauma; Fall; Blunt trauma (contusions or hematomas); Patient HX: Patient fell 8-10 feet from a ladder last night. C/O of left shoulder pain. ETOH on board. Limited history. TECHNIQUE: Imaging protocol: Radiologic exam of the Left shoulder. Views: 2 or more views. COMPARISON: CR (CHEST, ) 01/23/2022 3:49 AM FINDINGS: Bones/joints: Normal. Soft tissues: Normal. XR/XR shoulder LT min 2V* [id number] IMPRESSION: No acute findings.
--- NOTE | 2022-01-23 03:29 | CTR_ITS ---
PROCEDURE INFORMATION: Exam: CT Cervical Spine Without Contrast Exam date and time: 01/23/2022 3:45 AM Age: 41 years old Clinical indication: Injury or trauma; Fall; Blunt trauma; Patient HX: Patient fell 8-10 feet from a ladder last night. C/O of left shoulder pain. ETOH on board. Limited history. ; Additional info: Fall, ladder TECHNIQUE: Imaging protocol: Computed tomography of the cervical spine without contrast. Radiation optimization: All CT scans at this facility use at least one of these dose optimization techniques: automated exposure control; mA and/or kV adjustment per patient size (includes targeted exams where dose is matched to clinical indication); or iterative reconstruction. COMPARISON: CT Cervical Spine wo* [id number] 06/03/2015 4:48 PM RADIATION DOSE METRICS: Total DLP (mGy-cm): 247.07 FINDINGS: Bones/joints: No acute fracture. Normal alignment. Discs/Spinal canal/Neural foramina: No significant disc protrusion. No severe spinal canal stenosis. No significant neural foraminal narrowing. Lungs: Lung apices are normal. Soft tissues: Unremarkable. CT/CT cervical spin wo con* [id number] IMPRESSION: No acute findings.
--- NOTE | 2022-01-23 03:29 | XRR_ITS ---
PROCEDURE INFORMATION: Exam: XR Left Clavicle, Complete Exam date and time: 01/23/2022 3:49 AM Age: 41 years old Clinical indication: Injury or trauma; Fall; Blunt trauma (contusions or hematomas); Patient HX: Patient fell 8-10 feet from a ladder last night. C/O of left shoulder pain. ETOH on board. Limited history. TECHNIQUE: Imaging protocol: Radiologic exam of the Left clavicle. Complete exam. Views: Any number of views. COMPARISON: CT cervical spin wo con* [id number] 01/23/2022 3:45 AM FINDINGS: Bones/joints: Normal. Soft tissues: Normal. XR/[place] [id number] IMPRESSION: No acute findings.
--- NOTE | 2022-01-23 03:29 | CTR_ITS ---
PROCEDURE INFORMATION: Exam: CT Head Without Contrast Exam date and time: 01/23/2022 3:40 AM Age: 41 years old Clinical indication: Injury or trauma; Fall; Blunt trauma (contusions or hematomas); Patient HX: Patient fell 8-10 feet from a ladder last night. C/O of left shoulder pain. ETOH on board. Limited history. ; Additional info: Fall, ladder TECHNIQUE: Imaging protocol: Computed tomography of the head without contrast. Radiation optimization: All CT scans at this facility use at least one of these dose optimization techniques: automated exposure control; mA and/or kV adjustment per patient size (includes targeted exams where dose is matched to clinical indication); or iterative reconstruction. COMPARISON: CT Cervical Spine wo* [id number] 06/03/2015 4:48 PM RADIATION DOSE METRICS: Total DLP (mGy-cm): 1358.38 FINDINGS: Brain: Normal. No hemorrhage. Unremarkable white matter. No mass effect. Cerebral ventricles: No ventriculomegaly. Paranasal sinuses: Visualized sinuses are unremarkable. No fluid levels. Mastoid air cells: Visualized mastoid air cells are well aerated. Bones/joints: Unremarkable. No acute fracture. Soft tissues: Unremarkable. CT/CT head wo con* [id number] IMPRESSION: No acute intracranial abnormality.
--- NOTE | 2022-01-23 03:43 | ED_ITS ---
Documented by User: NESS Ryan 01/26/22 16:36 HPI - Fall General: Chief Complaint: Fall Stated Complaint: FALL/ETOH Time Seen by Provider: 01/23/22 03:43 History of Present Illness: 41-year-old male patient came in today by EMS for concerns of injury sustained during a fall. Patient reports that he has been drinking most of this evening and had went outside to change the antenna when he slipped and fell off the ladder backwards. The height seems to be approximately 4 to 6 feet as reported by patient and EMS. Patient reports left shoulder pain and discomfort. No loss of consciousness was reported. Patient is very excitable suggesting may be some stimulant drugs on board. Patient does report that he used methamphetamines but has not used it recently. Review of Systems General: Reports: 10 or more systems reviewed and unremarkable except in HPI and below Musc: Reports: extremity pain [facility] ED PFSH: Medical History (Updated 01/31/22 @ 00:01 by ) Alcohol dependence, uncomplicated Cannabis dependence, uncomplicated Major depressive disorder, recurrent, mild Nicotine dependence, cigarettes, uncomplicated On high dose antipsychotic drug therapy Other schizophrenia Other stimulant dependence, in remission Other stimulant dependence, uncomplicated Psychiatric care Valproic acid causing adverse effect in therapeutic use Family History (Updated 07/17/19 @ 14:21 by Galina Salinas LPN) Other Hypertension Stroke Social History (Updated 07/03/21 @ 11:56 by Pasquale Medina LPN) Smoking and tobacco status: current every day smoker cigarettes Packs smoked per day: 0.25 Years cigarettes smoked: 25 Quit status (tobacco): has tried quititng Number of times tried to quit tobacco: 1 Second hand smoke exposure: Yes Smoking risk assessment/counseling performed?: Yes Tobacco counseling given: counseling >3 minutes Alcohol intake: current Alcohol intake frequency: few times a month Physical Exam Const: COMMON NORMALS: alert HENMT: COMMON NORMALS: normocephalic HEAD & SCALP: normocephalic FACE & SINUS: abrasion (Apparent picking abrasions to the face) Eye: COMMON NORMALS: Equal, round and reactive pupils present and EOMs intact bilaterally GENERAL EYE: appearance normal, both eyes and all related structures PUPIL: Yes Equal, round and reactive pupils present Neck/C-Spine: COMMON NORMALS: full ROM CERVICAL SPINE: Yes cervical ROM normal and No Cervical spine tenderness Chest: CHEST: No tenderness Resp: COMMON NORMALS: normal respiratory effort and clear to auscultation bilaterally AUSCULTATION: clear to auscultation bilaterally Cardio: COMMON NORMALS: regular rate and regular rhythm RATE: regular rate RHYTHM: regular rhythm GI: COMMON NORMALS: Soft to palpation and non-tender PALPATION: Yes Soft to palpation Back/Pelvis: LUMBAR SPINE/LOWER BACK: No lumbar spinal tenderness and No paraspinal muscle tenderness Extremity: LEFT UPPER EXTREMITY: Yes shoulder joint (Tenderness to anterior shoulder) and Yes clavicle (Mild tenderness clavicle no obvious deformity) Neuro: SENSORIUM/ORIENTATION: Yes alert Skin: NARRATIVE SKIN EXAM: Patient has multiple areas of picking type abrasions to his extremities and face. TRAUMA: abrasion (Abrasions noted to the left forearm) Course Vital Signs: Vital signs: Vital Signs Temperature 98.3 F 01/23/22 03:15 Pulse Rate 114 H 01/23/22 03:15 Respiratory Rate 20 H 01/23/22 03:15 Blood Pressure 143/91 01/23/22 03:15 Pulse Oximetry 97 01/23/22 03:15 Oxygen Delivery Me thod 01/23/22 03:15 MDM - Fall Medical Decision Making 41-year-old male patient was brought in by EMS for concerns of fall from ladder. Patient reports pain to the left shoulder area. On exam patient has normal range of motion of the neck with no spinal tenderness on palpation. Lungs are clear to auscultation. Chest wall is nontender. Abdomen soft nontender. Patient has anterior tenderness to the left shoulder. Patient does admit to drinking alcohol tonight. Differential diagnosis includes but not limited to intracranial bleeding, cervical fracture, clavicle fracture, shoulder dislocation, multiple contusions. Patient was transferred of care to Dr. Soares at the end of my shift. Lab Data Radiology Impressions Cervical Spine CT 01/23/22 03:29 IMPRESSION: No acute findings. Clavicle X-Ray 01/23/22 03:29 IMPRESSION: No acute findings. Head CT 01/23/22 03:29 IMPRESSION: No acute intracranial abnormality. Shoulder X-Ray 01/23/22 03:29 IMPRESSION: No acute findings. Chest X-Ray 01/23/22 06:11 IMPRESSION: No acute findings. Discharge Plan Discharge Patient Disposition: Home Clinical Impression: Fall from ladder Condition: Stable Prescriptions: No Action Depakote 500 mg tablet,delayed release (DR/EC) 500 mg PO QAM Qty: 30 1RF fluoxetine 40 mg capsule 40 mg PO QAM Qty: 30 1RF hydroxyzine HCl 50 mg tablet 100 mg PO BID Qty: 120 1RF Rx Instructions: Take 1-2 tabs at bedtime as needed for sleep and daily as needed for anxiety paliperidone [Invega] 6 mg tablet extended release 24hr 12 mg PO QAM Qty: 60 1RF amitriptyline 50 mg tablet 50 mg PO .HS Qty: 30 1RF Discharge Orders: Discharge ED (Routine); Ordered 01/23/22 Ordered By: Pasquale Soares Discharge Diet: Usual diet Discharge Activity: Increase activity as tolerated Patient Instructions: Head Injury (ED), Contusion in Adults (ED), Abrasion (ED), Shoulder Pain (ED) Activity Restrictions/Additional Instructions: Thank you for visiting the emergency department. You were seen and evaluated for fall from ladder. No acute internal injuries were identified on CT scan. You have contusions and abrasions. I would expect increased soreness over the next 24 hours followed by improvement. You may use Tylenol and ibuprofen for s ymptoms however please do not exceed the daily recommended dosage and please keep in mind that many namebrand medications contain the same active ingredients. I will place you in an arm sling. If your shoulder pain does not improve in the next 3 to 5 days please follow-up with orthopedics. Return to the emergency department for worsening symptoms or anything else that you are concerned about a feel needs emergency department evaluation. Sign Out Sign Out Data: Patient Sign Out occurred on 01/23/22 at 03:58. Patient's care was discussed, and care was transferred from to Pasquale Soares MD. Coding Level of Care Code ED [employer] Operations Superintendent for Chg Fwd Exam Comprehensive Documented by User: Pasquale Soares MD 02/03/22 21:09 HPI - Fall General: Chief Complaint: Fall Stated Complaint: FALL/ETOH Time Seen by Provider: 01/23/22 03:43 [facility] ED PFS: Medical History (Updated 01/31/22 @ 00:01 by ) Alcohol dependence, uncomplicated Cannabis dependence, uncomplicated Major depressive disorder, recurrent, mild Nicotine dependence, cigarettes, uncomplicated On high dose antipsychotic drug therapy Other schizophrenia Other stimulant dependence, in remission Other stimulant dependence, uncomplicated Psychiatric care Valproic acid causing adverse effect in therapeutic use Family History (Updated 07/17/19 @ 14:21 by Galina Salinas LPN) Other Hypertension Stroke Social History (Updated 07/03/21 @ 11:56 by Pasquale Medina LPN) Smoking and tobacco status: current every day smoker cigarettes Packs smoked per day: 0.25 Years cigarettes smoked: 25 Quit status (tobacco): has tried quititng Number of times tried to quit tobacco: 1 Second hand smoke exposure: Yes Smoking risk assessment/counseling performed?: Yes Tobacco counseling given: counseling >3 minutes Alcohol intake: current Alcohol intake frequency: few times a month Course Vital Signs: Vital signs: Vital Signs Temperature 98.3 F 01/23/22 03:15 Pulse Rate 114 H 01/23/22 03:15 Respiratory Rate 20 H 01/23/22 03:15 Blood Pressure 143/91 01/23/22 03:15 Pulse Oximetry 97 01/23/22 03:15 Oxygen Delivery Me thod 01/23/22 03:15 MDM - Fall Medical Decision Making 41-year-old male patient was brought in by EMS for concerns of fall from ladder. Patient reports pain to the left shoulder area. On exam patient has normal range of motion of the neck with no spinal tenderness on palpation. Lungs are clear to auscultation. Chest wall is nontender. Abdomen soft nontender. Patient has anterior tenderness to the left shoulder. Patient does admit to drinking alcohol tonight. Differential diagnosis includes but not limited to intracranial bleeding, cervical fracture, clavicle fracture, shoulder dislocation, multiple contusions. Patient was transferred of care to Dr. Soares at the end of my shift. Patient care was discussed with NESS Buckley. I reviewed documentation. I personally assessed the patient and reperformed branch portions of E/M. CT of head negative for acute injury. No acute finding on x-rays. I agree based on my assessment that patient does not require imaging of chest/abdomen/pelvis or extremity. Left AC joint appears widened on my interpretation and as patient does have some tenderness in the region though more posteriorly will be placed in sling with follow-up with ortho if symptoms not improved. Patient's pain controlled adequately and able to move. Follow-up and return precautions given. Satisfactory for discharge. Pasquale Soares MD Emergency Medicine Lab Data Radiology Impressions Cervical Spine CT 01/23/22 03:29 IMPRESSION: No acute findings. Clavicle X-Ray 01/23/22 03:29 IMPRESSION: No acute findings. Head CT 01/23/22 03:29 IMPRESSION: No acute intracranial abnormality. Shoulder X-Ray 01/23/22 03:29 IMPRESSION: No acute findings. Chest X-Ray 01/23/22 06:11 IMPRESSION: No acute findings. Discharge Plan Discharge Patient Disposition: Home Clinical Impression: Fall from [place] Condition: Stable Prescriptions: No Action Depakote 500 mg tablet,delayed release (DR/EC) 500 mg PO QAM Qty: 30 1RF fluoxetine 40 mg capsule 40 mg PO QAM Qty: 30 1RF hydroxyzine HCl 50 mg tablet 100 mg PO BID Qty: 120 1RF Rx Instructions: Take 1-2 tabs at bedtime as needed for sleep and daily as needed for anxiety paliperidone [Invega] 6 mg tablet extended release 24hr 12 mg PO QAM Qty: 60 1RF amitriptyline 50 mg tablet 50 mg PO .HS Qty: 30 1RF Discharge Orders: Discharge ED (Routine); Ordered 01/23/22 Ordered By: Pasquale Soares Discharge Diet: Usual diet Discharge Activity: Increase activity as tolerated Patient Instructions: Head Injury (ED), Contusion in Adults (ED), Abrasion (ED), Shoulder Pain (ED) Activity Restrictions/Additional Instructions: Thank you for visiting the emergency department. You were seen and evaluated for fall from [place]. No acute internal injuries were identified on CT scan. You have contusions and abrasions. I would expect increased soreness over the next 24 hours followed by improvement. You may use Tylenol and ibuprofen for symptoms however please do not exceed the daily recommended dosage and please keep in mind that many namebrand medications contain the same active ingredients. I will place you in an arm sling. If your shoulder pain does not improve in the next 3 to 5 days please follow-up with orthopedics. Return to the emergency department for worsening symptoms or anything else that you are concerned about a feel needs emergency department evaluation. Sign Out Sign Out Data: Patient Sign Out occurred on 01/23/22 at 03:58. Patient's care was discussed, and care was transferred from to Pasquale Soares MD. Coding Level of Care Code ED Airborne Operations Superintendent for Jaquelin Fwd Exam Comprehensive
--- NOTE | 2022-01-23 06:11 | XRR_ITS ---
PROCEDURE INFORMATION: Exam: XR Chest Exam date and time: 01/23/2022 6:22 AM Age: 41 years old Clinical indication: Injury or trauma; Fall; Blunt trauma (contusions or hematomas); Injury details: PT fell from a ladder last pm, no chest complaints; Additional info: Fall from ladder TECHNIQUE: Imaging protocol: Radiologic exam of the chest. Views: 1 view. COMPARISON: CR (CHEST, ) 01/23/2022 3:54 AM FINDINGS: Lungs: Unremarkable. No consolidation. Pleural spaces: Unremarkable. No pleural effusion. No pneumothorax. Heart/Mediastinum: Unremarkable. No cardiomegaly. Bones/joints: Unremarkable. XR/XR chest 1V portable [id number] IMPRESSION: No acute findings.
[2022-01-23] MEDS: tetanus-dipt-pertussis 0.5 mL SDV IM (06:19)
--- NOTE | 2022-01-23 10:26 | DCPLANNER ---
Addendum entered by Suzie Kessler 01/28/22 13:16: Patient had a follow up appointment scheduled for 01.27.22 at ortho - patient did not attend appointment. Original Note: manager clinical research had message to schedule a follow up appointment for patient with ortho. manager clinical research sent patients information to the front office staff at ortho. Patients information will be printed and reviewed. Clinic will call patient with appointment information.
== END 2022-01-23 06:53 | disposition home or self-care (01) ==
PROVIDERS: Emergency Provider Emergency Medicine
DX: M25.512 Pain in left shoulder (principal); W11.XXXA Fall on and from ladder, initial encounter; F17.210 Nicotine dependence, cigarettes, uncomplicated; Z23 Encounter for immunization
CPT/HCPCS: 70450; 71045; 72125; 73000; 73030; 90471; 90715; 99284

== ENCOUNTER → 2022-02-06 13:48 | Outpatient (BNVA) | payer MEDICARE, MEDICAID, SELFPAY | PROVIDERS: Visit Provider Emergency Medicine | DX: S49.92XA Unspecified injury of left shoulder and upper arm, initial encounter (principal); X58.XXXA Exposure to other specified factors, initial encounter | CPT/HCPCS: 73030 ==

== ENCOUNTER → 2022-02-18 10:48 | Outpatient (BNVA) | payer MEDICARE, MEDICAID, SELFPAY | PROVIDERS: Referring Provider Emergency Medicine; Visit Provider Orthopaedic Surgery | DX: S43.109A Unspecified dislocation of unspecified acromioclavicular joint, initial encounter (principal); W17.89XA Other fall from one level to another, initial encounter | CPT/HCPCS: 99203; 99204 ==

== ENCOUNTER → 2023-05-24 10:53 | Outpatient (BNVA) | payer MEDICARE, MEDICAID, SELFPAY | PROVIDERS: Visit Provider Nurse Practitioner | DX: Z79.899 Other long term (current) drug therapy (principal) | CPT/HCPCS: 80061; 83036; 83721 ==

== ENCOUNTER → 2023-06-08 09:28 | Outpatient (BNVA) | payer MEDICARE, MEDICAID, SELFPAY | PROVIDERS: PCP Internal Medicine; Visit Provider Student in an Organized Health Care Education/Training Program | DX: S43.102A Unspecified dislocation of left acromioclavicular joint, initial encounter; S49.92XA Unspecified injury of left shoulder and upper arm, initial encounter; W11.XXXA Fall on and from ladder, initial encounter | CPT/HCPCS: 73030; 99213 ==

== ENCOUNTER → 2024-06-22 13:27 | Outpatient (BNVA) | payer MEDICARE, OTHER, SELFPAY | PROVIDERS: PCP Internal Medicine; Visit Provider Nurse Practitioner | DX: Z79.899 Other long term (current) drug therapy | CPT/HCPCS: 80061; 83036 ==